=== PATIENT | male | born 1970 | race Two or more races ===

== ENCOUNTER 2024-09-21 16:14 | Inpatient (IN) | payer OTHER ==
[2024-09-21 16:46] VITALS: BMI 27.3
[2024-09-21] MEDS ORDERED: ACETAMINOPHEN 325 MG TABLET (FP) ONE (17:56)
[2024-09-21] MEDS ORDERED: ONDANSETRON *ODT* 4 MG TABLET ONE (17:56)
[2024-09-21] MEDS ORDERED: NALOXONE (NARCAN) HCL 4 MG/0.1 ML SPRAY NS PRN (17:57)
[2024-09-21] MEDS ORDERED: DICYCLOMINE HCL 10 MG CAPSULE PO PRN (17:57)
[2024-09-21] MEDS ORDERED: BENZOCAINE/MENTHOL (CHLORASEPTIC ) LOZENGE MM PRN (17:57)
[2024-09-21] MEDS ORDERED: BENZONATATE 200 MG CAPSULE PO PRN (17:57)
[2024-09-21] MEDS ORDERED: MAG HYDROX/AL HYDROX/SIMETH 30 ML UNIT-DOSE CUP PO PRN (17:57)
[2024-09-21] MEDS ORDERED: guaiFENesin 600 MG TABLET.ER (FP) PO PRN (17:57)
[2024-09-21] MEDS: ACETAMINOPHEN 325 MG TABLET (FP) PO PRN (18:00)
[2024-09-21] MEDS: diazePAM 5 MG TABLET PO PRN (18:24)
[2024-09-21] MEDS ORDERED: diazePAM 5 MG TABLET ONE (18:29)
[2024-09-21] MEDS: GABAPENTIN 300 MG CAPSULE PO ONE (19:18)
[2024-09-21] MEDS: NICOTINE POLACRILEX 2 MG GUM BUC PRN (19:19)
[2024-09-21] MEDS: THIAMINE 100 MG TABLET PO SCH (22:51)
[2024-09-21] MEDS: METHOCARBAMOL 500 MG TABLET PO PRN (22:51)
[2024-09-21] MEDS: diazePAM 5 MG TABLET PO SCH (22:51)
[2024-09-21] MEDS: MELATONIN 5 MG TABLETS PO SCH (22:52)
[2024-09-22] MEDS: amLODIPine BESYLATE 10 MG TABLET (FP) PO SCH (10:15)
[2024-09-22] MEDS: PRENATAL VITAMINS W/ FOLIC ACID TABLET (FP) PO SCH (10:15)
[2024-09-22] MEDS: NICOTINE 21 MG/24 HOURS TOPICAL PATCH TD SCH (10:17)
[2024-09-22] MEDS: CITALOPRAM HYDROBROMIDE 20 MG TABLET PO SCH (11:43)
[2024-09-22] MEDS: GABAPENTIN 300 MG CAPSULE PO SCH (13:31)
[2024-09-22] MEDS: traZODone HCL 100 MG TABLET (FP) PO SCH (22:27)
[2024-09-22] MEDS: OLANZapine 10 MG TABLET PO SCH (22:27)
[2024-09-23] MEDS: diazePAM 5 MG TABLET PO SCH (06:02)
[2024-09-23] MEDS: BISMUTH SUBSALICYLATE 524 MG/30 ML PO PRN (07:33)
[2024-09-23 11:09] LABS: HEMATOCRIT 44.5 % (35.4-49); HEMOGLOBIN 14.8 GM/dL (11.7-16.9); MCH 29.7 pg (25.7-33.7); MCHC 33.4 g/dl (32.0-35.9); MEAN CELL VOLUME 89.1 fl (80-96); MEAN PLT VOLUME 9.1 fl (7.5-11.1); PLATELET COUNT 224 10^3/uL (134-434); RDW 14.7 % (11.9-15.9); WHITE BLOOD COUNT 3.6 K/mm3 (4.0-10.0)
[2024-09-23 11:12] LABS: POTASSIUM 4.2 mmol/L (3.5-5.1)
[2024-09-23 11:18] LABS: BLOOD UREA NITROGEN 18.1 mg/dL (7-18)
[2024-09-23 11:19] LABS: CALCIUM 9.4 mg/dL (8.5-10.1)
[2024-09-23 11:20] LABS: ALBUMIN 3.5 g/dl (3.4-5.0)
[2024-09-23 11:22] LABS: CREATININE 0.9 mg/dL (0.55-1.3)
[2024-09-23 11:24] LABS: BILIRUBIN,TOTAL 0.2 mg/dL (0.2-1); TOT PROT 6.4 g/dl (6.4-8.2)
[2024-09-24] MEDS: ONDANSETRON *ODT* 4 MG TABLET SL PRN (02:54)
[2024-09-24] MEDS: hydrOXYzine PAMOATE 25 MG CAPSULE (FP) PO PRN (02:54)
[2024-09-24] MEDS: diazePAM 5 MG TABLET PO SCH ×2 (05:40→22:31)
[2024-09-24] MEDS: NALOXONE (NYS OPIOID OVERDOSE PROGRAM) 4 MG/0.1 ML SPRAY NS SCH (09:18)
[2024-09-25] MEDS: diazePAM 5 MG TABLET PO ONE (05:55)
[2024-09-26] MEDS: IBUPROFEN 600 MG TABLET (FP) PO PRN (02:56)
[2024-09-26] MEDS: MAGNESIUM HYDROX 2400MG/30ML ORAL SUSPENSION 30 ML CUP PO PRN (09:59)
[2024-09-26] MEDS: IBUPROFEN 400 MG TABLET (FP) PO PRN (15:09)
[2024-09-26] MEDS: BISACODYL 5 MG TABLET.DR (FP) PO ONE (15:34)
[2024-09-26] MEDS: diazePAM 5 MG TABLET PO PRN (15:59)
[2024-09-27] MEDS: METHOCARBAMOL 500 MG TABLET PO PRN (00:41)
[2024-09-27] MEDS ORDERED: NALOXONE (NYS OPIOID OVERDOSE PROGRAM) 4 MG/0.1 ML SPRAY NS PRN (10:09)
[2024-09-27] MEDS: POLYETHYLENE GLYCOL (HEALTHYLAX) 3350 17 GM PACKET PO PRN (12:46)
[2024-09-27 13:16] LABS: INR 0.95 (0.83-1.09); PROTHROMBIN TIME (PATIENT) 10.8 SEC (9.7-13.0)
[2024-09-27] MEDS: SENNOSIDES/DOCUSATE COMBO (SENNA PLUS) TABLET (UD) PO SCH (14:12)
[2024-09-27] MEDS: BISACODYL 10 MG SUPP.RECT PR PRN (19:13)
[2024-09-27] MEDS: DOCUSATE SODIUM 100 MG CAPSULE (FP) PO ONE (22:30)
[2024-09-28] MEDS: LACTULOSE 20 GM/30 ML UDC (FOR ORAL USE ONLY) PO ONE (19:47)
[2024-09-29] MEDS: BISACODYL 5 MG TABLET.DR (FP) PO PRN (13:44)
[2024-09-30] MEDS ORDERED: DOCUSATE SODIUM 100 MG CAPSULE (FP) PO PRN (13:31)
[2024-09-30] MEDS: BACLOFEN 10 MG TABLET (FP) PO SCH (21:17)
[2024-10-01] MEDS: BACLOFEN 10 MG TABLET (FP) PO SCH (17:22)
[2024-10-01] MEDS: GABAPENTIN 300 MG CAPSULE PO SCH (21:23)
[2024-10-02] MEDS: CITALOPRAM HYDROBROMIDE 20 MG TABLET PO SCH (05:48)
[2024-10-02] MEDS: BACLOFEN 10 MG TABLET (FP) PO SCH (21:08)
[2024-10-03] MEDS: NICOTINE 21 MG/24 HOURS TOPICAL PATCH TD SCH (05:56)
[2024-10-07] MEDS: BACLOFEN 10 MG TABLET (FP) PO SCH (15:41)
[2024-10-09] MEDS: GABAPENTIN 300 MG CAPSULE PO SCH (09:57)
[2024-10-09] MEDS: CLOTRIMAZOLE/BETAMET DIPROP 15 GM TUBE TP SCH (11:17)
[2024-10-09] MEDS: BACLOFEN 10 MG TABLET (FP) PO SCH (16:27)
[2024-10-11 05:57] VITALS: TEMP 97.7
[2024-10-11 07:58] VITALS: RESP 17
[2024-10-11] MEDS: NALOXONE (NYS OPIOID OVERDOSE PROGRAM) 4 MG/0.1 ML SPRAY NS SCH (08:56)
[2024-10-11 09:25] VITALS: BP 143/66; PULSE 78
[2024-10-11] MEDS: LOPERAMIDE HCL 2 MG CAPSULE PO PRN (09:26)
== END 2024-10-11 09:43 | disposition home or self-care (01) | DRG 895 ==
LOC: YASAS 16:14 → Y6N 18:02 → Y3NR 09-25 13:34 → Y3W 09-26 15:44
PROVIDERS: ADMIT Allergy & Immunology; ATTEND Psychiatry & Neurology Pain Medicine
PROC: HZ42ZZZ Group Counseling for Substance Abuse Treatment, Cognitive-Behavioral (ICD-10-PCS; principal; 2024-09-21)
DX: F10.20 Alcohol dependence, uncomplicated (principal); F14.20 Cocaine dependence, uncomplicated; F31.81 Bipolar II disorder; F12.20 Cannabis dependence, uncomplicated; F17.210 Nicotine dependence, cigarettes, uncomplicated; F41.9 Anxiety disorder, unspecified; G47.33 Obstructive sleep apnea (adult) (pediatric); I10 Essential (primary) hypertension; K59.00 Constipation, unspecified; L30.9 Dermatitis, unspecified
CPT/HCPCS: 36415; 80053; 80305; 80307; 82140; 82652; 82962; 83735; 85027; 85610; 86780; 93005; 93010; J0475; Q0162